=== PATIENT | female | born 1960 | race Caucasian/White ===

== ENCOUNTER → 2017-05-20 | Outpatient (CLI) | payer MEDICARE ==
[~2017-05-20] MED LIST: CITA40TA5 PO; CLON-364 PO; CYCL-259 PO; GABA100C PO; HYDR-3240 PO; HYDR-3307 PO; HYDR25CA PO; HYDR25TA11 PO; LEVO25TA4 PO; MIRT7.5T8 PO; NAPR500T4 PO; TRAZ150T62 PO
[2017-05-20 11:22] LABS: BASOPHILS # (AUTO) 0.04 x10^3/uL (0-0.1); BASOPHILS % (AUTO) 1 % (0-1); EOSINOPHILS # (AUTO) 0.07 x10^3/uL (0-0.4); EOSINOPHILS % (AUTO) 1 % (1-7); LYMPHOCYTES % (AUTO) 28 % (22-44); MD NO; MEAN CORPUSCULAR HGB CONC 33.7 g/dL (32.4-35.8); MEAN CORPUSCULAR VOLUME 98.1 fL (80-100); MEAN PLATELET VOLUME 6.9 fL (7.4-10.4); MONOCYTES # (AUTO) 0.64 x10^3/uL (0.2-0.8); MONOCYTES % (AUTO) 8 % (2-9); NEUTROPHILS # (AUTO) 5.31 x10^3/uL (1.8-6.8); NEUTROPHILS % (AUTO) 63 % (42-75); PLATELET COUNT 275 x10^3/uL (130-400); RED BLOOD COUNT 4.37 x10^6/uL (3.82-5.3); RED CELL DISTRIBUTION WIDTH 17.7 % (9.6-15.2)
[2017-05-20 11:29] LABS: INTERNATIONAL NORMALIZED RATIO 0.89 (0.93-1.1); PROTHROMBIN TIME 9.2 Seconds (9.6-11.5)
[2017-05-20 11:33] LABS: MICROSCOPIC NOT IND
[2017-05-20 11:33] LABS: ALBUMIN 3.7 g/dL (3.4-5.0); ANION GAP 4 mmol/L (5-15); CALCIUM 8.6 mg/dL (8.5-10.1); CHLORIDE 107 mmol/L (98-107)
[2017-05-20 11:37] LABS: ALANINE AMINOTRANSFERASE 74 U/L (12-78); ALKALINE PHOSPHATASE 68 U/L (45-117); BILIRUBIN,TOTAL 0.4 mg/dL (0.2-1.0); CREATININE 0.65 mg/dL (0.55-1.02)
[2017-05-20 11:38] LABS: CULTURE INDICATED? NO
== END | disposition home or self-care (01) ==
LOC: STAR 09:46
PROVIDERS: ATTEND Neurological Surgery
DX: Z01.818 Encounter for other preprocedural examination (principal); M51.36 Other intervertebral disc degeneration, lumbar region
CPT/HCPCS: 36415; 71046; 80053; 81003; 85025; 85610; 85730; 93005

== ENCOUNTER 2017-05-27 15:45 | Inpatient (IN) | payer MEDICARE ==
[~2017-05-27] VITALS: Ht 152.4 cm; Wt 50.6 kg
[~2017-05-27 15:45] MED LIST changes: +NAPR-685 PO; -NAPR500T4 PO
[2017-05-30 05:46] VITALS: BP 112/69
[2017-05-30] MEDS ORDERED: EPINEPHRINE 1 MG/ML, 1ML ONE (06:35)
[2017-05-30] MEDS ORDERED: BUPIVACAINE 0.25% ONE (06:35)
[2017-05-30] MEDS ORDERED: THROMBIN 20,000 UNIT VIAL TP ONE (06:35)
[2017-05-30] MEDS ORDERED: BUPIVACAINE/PF 0.5% ONE (06:35)
[2017-05-30] MEDS ORDERED: BACITRACIN 50,000 UNIT ONE (06:36)
[2017-05-30] MEDS ORDERED: HEPARIN 1,000 UNITS/ML, 30ML ONE (06:38)
[2017-05-30] MEDS ORDERED: NEOSTIGMINE 1 MG/ML, 10ML ONE (06:58)
[2017-05-30] MEDS ORDERED: GLYCOPYRROLATE 0.2MG/1ML, 5ML ONE (06:58)
[2017-05-30] MEDS ORDERED: HYDROmorphone 2 MG/ML, 1ML ONE (07:03)
[2017-05-30] MEDS ORDERED: MIDAZOLAM 1 MG/ML, 2ML ONE ×2 (07:03→11:35)
[2017-05-30] MEDS ORDERED: FENTANYL PF 250 MCG/5ML ONE (07:03)
[2017-05-30] MEDS ORDERED: KETAMINE 10 MG/ML, 20ML ONE (07:03)
[2017-05-30] MEDS ORDERED: BUPIVACAINE/PF-EPI 0.5% 1:200K INFIL ONE (07:41)
[2017-05-30] MEDS ORDERED: DEXAMETHASONE 4 MG/ML, 1ML ONE ×2 (07:53)
[2017-05-30] MEDS ORDERED: ROCURONIUM 10 MG/ML,10ML ONE ×2 (07:53)
[2017-05-30] MEDS ORDERED: CEFAZOLIN 1,000 MG ONE (07:53)
[2017-05-30] MEDS ORDERED: PROPOFOL 10 MG/ML, 20ML ONE (07:53)
[2017-05-30] MEDS ORDERED: EPHEDRINE 50 MG/ML, 1ML ONE (07:54)
[2017-05-30] MEDS ORDERED: LABETALOL 5MG/ML, 20ML IV PRN ×2 (08:00→14:30)
[2017-05-30] MEDS ORDERED: OXYcodone 5 MG/5 ML ORAL.SOL UDC PO PRN (08:00)
[2017-05-30] MEDS ORDERED: EPHEDRINE 50 MG/ML, 1ML IVPush PRN (08:00)
[2017-05-30] MEDS ORDERED: hydrALAzine 20 MG/ML, 1ML IV PRN (08:00)
[2017-05-30] MEDS ORDERED: HYDROmorphone 1 MG/ML, 1ML IV PRN (08:00)
[2017-05-30] MEDS ORDERED: ACETAMINOPHEN 325 MG TABLET PO PRN (08:00)
[2017-05-30] MEDS ORDERED: PROMETHAZINE 25 MG/ML, 1ML IV PRN (08:00)
[2017-05-30] MEDS ORDERED: METOPROLOL 1 MG/ML, 5ML IV PRN (08:00)
[2017-05-30] MEDS ORDERED: ALBUTEROL SULFATE 2.5 MG/3 ML NPPB PRN (08:00)
[2017-05-30] MEDS ORDERED: DIAZEPAM 5 MG/ML, 2ML IVPush PRN (08:00)
[2017-05-30] MEDS ORDERED: ONDANSETRON 2MG/ML, 2ML IVPush PRN (08:00)
[2017-05-30] MEDS ORDERED: FENTANYL PF 100 MCG/2ML ONE ×2 (11:36→12:08)
[2017-05-30] MEDS: FENTANYL PF 100 MCG/2ML IV PRN ×2 (11:45→12:15)
[2017-05-30] MEDS ORDERED: ACETAMINOPHEN 650 MG/20.3 ML UDC ONE (12:07)
[2017-05-30] MEDS ORDERED: OXYcodone 5 MG/5 ML ORAL.SOL UDC ONE (12:08)
[2017-05-30] MEDS ORDERED: MIDAZOLAM 1 MG/ML, 2ML IV PRN (12:30)
[2017-05-30] MEDS ORDERED: METHOCARBAMOL 750 MG TABLET ONE (13:05)
[2017-05-30 13:48] VITALS: BP 101/67
[2017-05-30] MEDS ORDERED: morphine SULFATE 10 MG/ML, 1ML IV PRN (14:30)
[2017-05-30] MEDS ORDERED: DIPHENHYDRAMINE 50 MG/ML, 1ML IM PRN (14:30)
[2017-05-30] MEDS ORDERED: DIPHENHYDRAMINE 50 MG CAPSULE PO PRN (14:30)
[2017-05-30] MEDS ORDERED: HYDROcodone/APAP 5/325 TABLET PO PRN (14:30)
[2017-05-30] MEDS ORDERED: MAGNESIUM HYDROXIDE 8%, 30ML UDC PO PRN (14:30)
[2017-05-30] MEDS ORDERED: DIPHENHYDRAMINE 50 MG/ML, 1ML IVPush PRN (14:30)
[2017-05-30] MEDS ORDERED: BISACODYL 10 MG SUPP PR PRN (14:30)
[2017-05-30] MEDS ORDERED: PROMETHAZINE 25 MG/ML, 1ML IM PRN (14:30)
[2017-05-30] MEDS ORDERED: METHOCARBAMOL 750 MG TABLET PO PRN (14:30)
[2017-05-30] MEDS ORDERED: ONDANSETRON 2MG/ML, 2ML IV PRN (14:30)
[2017-05-30] MEDS ORDERED: INSTRUCTION SEE COMMENTS XX PRN (15:00)
[2017-05-30] MEDS: D5%-0.9% NACL+KCL 20MEQ 1,000 ML IV SCH (15:41)
[2017-05-30] MEDS: GABAPENTIN 100 MG CAPSULE PO SCH ×2 (15:41→21:10)
[2017-05-30] MEDS: CYCLOBENZAPRINE 10 MG TABLET PO SCH ×2 (15:41→23:26)
[2017-05-30] MEDS: NICOTINE 14MG/24 HR PATCH.TD24 TD SCH (15:41)
[2017-05-30] MEDS: CEFAZOLIN PMX 1GM/50ML 50 ML IVPB SCH ×2 (15:41→23:26)
[2017-05-30 18:33] VITALS: BP 126/88
[2017-05-30] MEDS: OXYcodone/APAP 5/325MG TABLET PO PRN ×2 (21:11→21:40)
[2017-05-30] MEDS: DOXYCYCLINE 100MG CAP PO SCH (23:00)
[2017-05-30 23:32] VITALS: BP 117/78
[2017-05-31] MEDS: D5%-0.9% NACL+KCL 20MEQ 1,000 ML IV SCH ×3 (00:30→20:30)
[2017-05-31 03:37] VITALS: BP 110/68
[2017-05-31] MEDS: LEVOTHYROXINE 25 MCG TABLET PO SCH (05:14)
[2017-05-31] MEDS: OXYcodone/APAP 5/325MG TABLET PO PRN (05:14)
[2017-05-31 05:44] LABS: BASOPHILS # (AUTO) 0.03 x10^3/uL (0-0.1); BASOPHILS % (AUTO) 0 % (0-1); EOSINOPHILS # (AUTO) 0.01 x10^3/uL (0-0.4); EOSINOPHILS % (AUTO) 0 % (1-7); LYMPHOCYTES % (AUTO) 26 % (22-44); MD NO; MEAN CORPUSCULAR HEMOGLOBIN 33.2 pg (27.0-34.8); MEAN CORPUSCULAR HGB CONC 34.5 g/dL (32.4-35.8); MEAN CORPUSCULAR VOLUME 96.2 fL (80-100); MEAN PLATELET VOLUME 6.4 fL (7.4-10.4); MONOCYTES # (AUTO) 1.02 x10^3/uL (0.2-0.8); MONOCYTES % (AUTO) 12 % (2-9); NEUTROPHILS # (AUTO) 5.43 x10^3/uL (1.8-6.8); NEUTROPHILS % (AUTO) 62 % (42-75); PLATELET COUNT 291 x10^3/uL (130-400); RED CELL DISTRIBUTION WIDTH 16.4 % (9.6-15.2)
[2017-05-31 05:53] LABS: CHLORIDE 104 mmol/L (98-107)
[2017-05-31 05:59] LABS: ANION GAP 7 mmol/L (5-15); CALCIUM 7.9 mg/dL (8.5-10.1); CREATININE 0.49 mg/dL (0.55-1.02)
[2017-05-31] MEDS: ENOXAPARIN 40 MG/0.4 ML SQ SCH (06:16)
[2017-05-31 07:20] VITALS: BP 92/58
[2017-05-31] MEDS: SENNA/DOCUSATE TABLET PO SCH (09:00)
[2017-05-31] MEDS ORDERED: KETOROLAC 30 MG/1 ML IM ONE (09:00)
[2017-05-31] MEDS: DOXYCYCLINE 100MG CAP PO SCH ×2 (09:00→21:37)
[2017-05-31] MEDS: CITALOPRAM 20 MG TABLET PO SCH (09:11)
[2017-05-31] MEDS: GABAPENTIN 100 MG CAPSULE PO SCH ×3 (09:11→21:35)
[2017-05-31] MEDS: CYCLOBENZAPRINE 10 MG TABLET PO SCH ×3 (09:11→21:35)
[2017-05-31] MEDS: OXYcodone/APAP 10/325MG TABLET PO PRN ×3 (09:12→21:35)
[2017-05-31 13:11] VITALS: BP 92/63
[2017-05-31] MEDS: NICOTINE 14MG/24 HR PATCH.TD24 TD SCH (16:18)
[2017-05-31 22:25] VITALS: BP 116/77
[2017-05-31] MEDS ORDERED: CALCIUM CARBONATE 500 MG TAB.CHEW PO PRN (22:30)
[2017-05-31] MEDS ORDERED: CALCIUM CARBONATE 500 MG TAB.CHEW ONE (22:32)
[2017-06-01] MEDS: OXYcodone/APAP 10/325MG TABLET PO PRN ×3 (02:17→10:03)
[2017-06-01 05:06] VITALS: BP 106/75
[2017-06-01 05:21] LABS: BASOPHILS # (AUTO) 0.06 x10^3/uL (0-0.1); BASOPHILS % (AUTO) 1 % (0-1); EOSINOPHILS # (AUTO) 0.07 x10^3/uL (0-0.4); EOSINOPHILS % (AUTO) 1 % (1-7); LYMPHOCYTES # (AUTO) 2.97 x10^3/uL (1-3.4); LYMPHOCYTES % (AUTO) 36 % (22-44); MD NO; MEAN CORPUSCULAR HEMOGLOBIN 33.2 pg (27.0-34.8); MEAN CORPUSCULAR HGB CONC 34.5 g/dL (32.4-35.8); MEAN CORPUSCULAR VOLUME 96.3 fL (80-100); MEAN PLATELET VOLUME 6.5 fL (7.4-10.4); MONOCYTES # (AUTO) 0.87 x10^3/uL (0.2-0.8); MONOCYTES % (AUTO) 11 % (2-9); NEUTROPHILS # (AUTO) 4.37 x10^3/uL (1.8-6.8); NEUTROPHILS % (AUTO) 52 % (42-75); PLATELET COUNT 287 x10^3/uL (130-400); RED BLOOD COUNT 3.31 x10^6/uL (3.82-5.3); RED CELL DISTRIBUTION WIDTH 16.7 % (9.6-15.2)
[2017-06-01 05:31] LABS: CHLORIDE 102 mmol/L (98-107)
[2017-06-01 05:36] LABS: ANION GAP 7 mmol/L (5-15)
[2017-06-01] MEDS: D5%-0.9% NACL+KCL 20MEQ 1,000 ML IV SCH (05:54)
[2017-06-01] MEDS: LEVOTHYROXINE 25 MCG TABLET PO SCH (06:03)
[2017-06-01] MEDS: ENOXAPARIN 40 MG/0.4 ML SQ SCH (06:04)
[2017-06-01 07:49] VITALS: BP 116/80
[2017-06-01] MEDS: DOXYCYCLINE 100MG CAP PO SCH (08:56)
[2017-06-01] MEDS: CYCLOBENZAPRINE 10 MG TABLET PO SCH (08:56)
[2017-06-01] MEDS: CITALOPRAM 20 MG TABLET PO SCH (08:56)
[2017-06-01] MEDS: SENNA/DOCUSATE TABLET PO SCH (08:56)
[2017-06-01] MEDS: GABAPENTIN 100 MG CAPSULE PO SCH (08:56)
[2017-06-01] MEDS ORDERED: DOXY100T PO (10:59)
[2017-06-01] MEDS ORDERED: SENN-31 PO (11:00)
[2017-06-01] MEDS ORDERED: OXYC-307 PO (11:01)
[2017-06-01 11:16] VITALS: BP 119/73
[2017-06-09] MEDS ORDERED: METH4TAB6 PO (14:04)
== END 2017-06-01 11:56 | disposition home or self-care (01) | DRG 453 ==
LOC: 4NOR 05-30 05:20 → DCLOUNGE 06-01 11:32
PROVIDERS: ADMIT Neurological Surgery; ATTEND Neurological Surgery
PROC: 0SG30A0 Fusion of Lumbosacral Joint with Interbody Fusion Device, Anterior Approach, Anterior Column, Open Approach (ICD-10-PCS; 2017-05-30)
PROC: 4A11X4G Monitoring of Peripheral Nervous Electrical Activity, Intraoperative, External Approach (ICD-10-PCS; 2017-05-30)
PROC: 0SG3071 Fusion of Lumbosacral Joint with Autologous Tissue Substitute, Posterior Approach, Posterior Column, Open Approach (ICD-10-PCS; 2017-05-30)
PROC: 0SP00AZ Removal of Interbody Fusion Device from Lumbar Vertebral Joint, Open Approach (ICD-10-PCS; 2017-05-30)
PROC: 4A11X4G Monitoring of Peripheral Nervous Electrical Activity, Intraoperative, External Approach (ICD-10-PCS; 2017-05-30)
PROC: 0SG0071 Fusion of Lumbar Vertebral Joint with Autologous Tissue Substitute, Posterior Approach, Posterior Column, Open Approach (ICD-10-PCS; 2017-05-30)
PROC: 0SB40ZZ Excision of Lumbosacral Disc, Open Approach (ICD-10-PCS; principal; 2017-05-30 07:00)
DX: M48.061 Spinal stenosis, lumbar region without neurogenic claudication (principal); J96.01 Acute respiratory failure with hypoxia; M48.57XA Collapsed vertebra, not elsewhere classified, lumbosacral region, initial encounter for fracture; F17.200 Nicotine dependence, unspecified, uncomplicated; F32.9 Major depressive disorder, single episode, unspecified; G89.29 Other chronic pain; M43.17 Spondylolisthesis, lumbosacral region; M51.17 Intervertebral disc disorders with radiculopathy, lumbosacral region; M43.16 Spondylolisthesis, lumbar region; M51.16 Intervertebral disc disorders with radiculopathy, lumbar region; Z88.8 Allergy status to other drugs, medicaments and biological substances; Z88.0 Allergy status to penicillin; Z86.19 Personal history of other infectious and parasitic diseases
CPT/HCPCS: 36415; 72100; 74018; 80048; 82330; 82803; 82947; 84132; 84295; 85014; 85025; C1713; J0171; J0690; J1100; J1170; J1644; J1650; J1885; J2250; J2270; J2550; J2704; J2710; J3010; J3360; J3490; C1762; J3480

== ENCOUNTER 2017-06-15 07:40 | Inpatient (IN) | payer MEDICARE ==
[~2017-06-15] VITALS: Ht 152.4 cm; Wt 50.0 kg
[~2017-06-15 07:40] MED LIST changes: +DOXY100T PO; +METH4TAB6 PO; +OXYC-307 PO; +SENN-31 PO
[2017-06-15] MEDS ORDERED: HYDR-3307 PO (07:55)
[2017-06-15] MEDS ORDERED: SODIUM CHLORIDE FLUSH 10ML SYR IVF ONE ×2 (08:30→10:00)
[2017-06-15] MEDS ORDERED: ONDANSETRON 2MG/ML, 2ML IVPush ONE (08:30)
[2017-06-15] MEDS ORDERED: SODIUM CHLORIDE 0.9% 1,000ML IV ONE (08:30)
[2017-06-15] MEDS ORDERED: ONDANSETRON 2MG/ML, 2ML ONE (08:44)
[2017-06-15] MEDS ORDERED: MORPHINE SULFATE 4 MG/ML, 1ML ONE ×2 (08:44→10:21)
[2017-06-15] MEDS: MORPHINE SULFATE 4 MG/ML, 1ML IVPush PRN ×2 (09:08→10:27)
[2017-06-15 09:22] LABS: MEAN CORPUSCULAR HEMOGLOBIN 32.8 pg (27.0-34.8); MEAN CORPUSCULAR HGB CONC 33.8 g/dL (32.4-35.8); MEAN CORPUSCULAR VOLUME 96.9 fL (80-100); PLATELET COUNT 697 x10^3/uL (130-400); RED BLOOD COUNT 3.55 x10^6/uL (3.82-5.3)
[2017-06-15 09:24] LABS: ALBUMIN 2.7 g/dL (3.4-5.0); ANION GAP 11 mmol/L (5-15); CALCIUM 8.6 mg/dL (8.5-10.1); CHLORIDE 93 mmol/L (98-107); CREATININE 0.54 mg/dL (0.55-1.02)
[2017-06-15 09:26] LABS: CREATINE KINASE, TOTAL 214 U/L (26-192)
[2017-06-15] MEDS ORDERED: CEFTRIAXONE PMX 1GM/50ML 50 ML IVPB ONE (10:00)
[2017-06-15] MEDS ORDERED: CEFTRIAXONE PMX 1GM/50ML 50 ML ONE (10:02)
[2017-06-15 10:05] LABS: BASOPHILS % (AUTO) 0 % (0-1); EOSINOPHILS % (AUTO) 0 % (1-7); LYMPHOCYTES # (AUTO) 0.58 x10^3/uL (1-3.4); LYMPHOCYTES % (AUTO) 4 % (22-44); MD SCAN; MONOCYTES # (AUTO) 1.12 x10^3/uL (0.2-0.8); MONOCYTES % (AUTO) 8 % (2-9); NEUTROPHILS # (AUTO) 11.73 x10^3/uL (1.8-6.8); NEUTROPHILS % (AUTO) 87 % (42-75)
[2017-06-15] MEDS ORDERED: MORPHINE SULFATE 4 MG/ML, 1ML IVPush PRN (11:00)
[2017-06-15] MEDS ORDERED: hydrALAzine 20 MG/ML, 1ML IVPush PRN (11:00)
[2017-06-15] MEDS ORDERED: ACETAMINOPHEN 325 MG TABLET PO PRN (11:00)
[2017-06-15] MEDS ORDERED: ONDANSETRON 2MG/ML, 2ML IVPush PRN (11:00)
[2017-06-15 11:45] LABS: FREE T4 (FREE THYROXINE) 1.29 ng/dL (0.76-1.46); THYROID STIMULATING HORMONE 0.376 mIU/L (0.358-3.740)
[2017-06-15 11:46] LABS: C-REACTIVE PROTEIN, QUANT > 19.00 mg/dL (0.02-0.49)
[2017-06-15] MEDS ORDERED: GADOBUTROL 7.5 MMOL/7.5 ML VIAL ONE (11:57)
[2017-06-15 12:27] VITALS: BP 119/82
[2017-06-15 12:29] LABS: HCT (SEDRATE) 34.4 % (34.6-47.8)
[2017-06-15] MEDS: CITALOPRAM 20 MG TABLET PO SCH (13:22)
[2017-06-15] MEDS: NICOTINE 21 MG/24 HR PATCH.TD24 TD SCH (13:22)
[2017-06-15] MEDS: GABAPENTIN 100 MG CAPSULE PO SCH ×3 (13:22→21:59)
[2017-06-15] MEDS: POTASSIUM CHLORIDE 20 MEQ TAB.ER.PRT PO SCH ×2 (13:22→13:30)
[2017-06-15] MEDS: HYDROcodone/APAP 5/325 TABLET PO PRN ×3 (13:22→21:59)
[2017-06-15] MEDS: LEVOTHYROXINE 25 MCG TABLET PO SCH (13:34)
[2017-06-15] MEDS: SODIUM CHLORIDE 0.9% 1,000 ML IV SCH (13:34)
[2017-06-15 19:10] VITALS: BP 106/74
[2017-06-15 19:32] LABS: AMPHETAMINE SCREEN, URINE Negative (Negative); BARBITURATE SCREEN, URINE Negative (Negative); BENZODIAZEPINE SCREEN, URINE Negative (Negative); CANNABINOID SCREEN, URINE Positive (Negative); COCAINE SCREEN, URINE Negative (Negative); METHADONE SCREEN, URINE Negative (Negative); OPIATE SCREEN, URINE Positive (Negative)
[2017-06-16 00:40] VITALS: BP 137/89
[2017-06-16] MEDS: SODIUM CHLORIDE 0.9% 1,000 ML IV SCH ×3 (00:49→23:24)
[2017-06-16 05:11] LABS: BASOPHILS % (AUTO) 0 % (0-1); EOSINOPHILS % (AUTO) 0 % (1-7); LYMPHOCYTES # (AUTO) 0.77 x10^3/uL (1-3.4); LYMPHOCYTES % (AUTO) 7 % (22-44); MD NO; MEAN CORPUSCULAR HEMOGLOBIN 33.3 pg (27.0-34.8); MEAN CORPUSCULAR HGB CONC 33.7 g/dL (32.4-35.8); MEAN CORPUSCULAR VOLUME 98.6 fL (80-100); MEAN PLATELET VOLUME 6.4 fL (7.4-10.4); MONOCYTES % (AUTO) 10 % (2-9); NEUTROPHILS % (AUTO) 83 % (42-75); PLATELET COUNT 581 x10^3/uL (130-400); RED BLOOD COUNT 3.27 x10^6/uL (3.82-5.3)
[2017-06-16] MEDS: HYDROcodone/APAP 5/325 TABLET PO PRN ×5 (05:15→23:24)
[2017-06-16 05:19] LABS: ALBUMIN 2.1 g/dL (3.4-5.0); ANION GAP 9 mmol/L (5-15); CALCIUM 8.4 mg/dL (8.5-10.1); CHLORIDE 102 mmol/L (98-107)
[2017-06-16 05:22] LABS: ALANINE AMINOTRANSFERASE 41 U/L (12-78); ALKALINE PHOSPHATASE 99 U/L (45-117); BILIRUBIN,TOTAL 0.6 mg/dL (0.2-1.0); CREATININE 0.41 mg/dL (0.55-1.02); TOTAL PROTEIN 6.3 g/dL (6.4-8.2)
[2017-06-16] MEDS: GABAPENTIN 100 MG CAPSULE PO SCH ×4 (06:11→23:24)
[2017-06-16 07:03] VITALS: BP 97/60
[2017-06-16] MEDS ORDERED: ENOXAPARIN 30 MG/0.3 ML SQ SCH (09:00)
[2017-06-16] MEDS ORDERED: POTASSIUM PHOSPHATE 44 MEQ in SODIUM CHLORIDE 0.9% 500 ML IV ONE (09:30)
[2017-06-16] MEDS ORDERED: CEFTRIAXONE 1,000 MG in DEXTROSE 5% 50 ML IVPB SCH (10:00)
[2017-06-16] MEDS ORDERED: VANCOMYCIN PMX 1GM/200ML 200 ML IV ONE (10:00)
[2017-06-16] MEDS ORDERED: VANCOMYCIN PER PHARMACY MC PRN (10:00)
[2017-06-16] MEDS: CITALOPRAM 20 MG TABLET PO SCH (10:34)
[2017-06-16] MEDS: LEVOTHYROXINE 25 MCG TABLET PO SCH (10:34)
[2017-06-16] MEDS: POTASSIUM CHLORIDE 20 MEQ TAB.ER.PRT PO SCH ×2 (10:35→13:41)
[2017-06-16] MEDS: PIPERACILLIN/TAZO/PMX 3.375GM 50 ML IV SCH ×3 (10:56→23:25)
[2017-06-16] MEDS: VANCOMYCIN 800 MG in SODIUM CHLORIDE 0.9% 100 ML IV SCH (11:46)
[2017-06-16] MEDS: NICOTINE 21 MG/24 HR PATCH.TD24 TD SCH (11:46)
[2017-06-16] MEDS ORDERED: PHARMACOKINETIC MONITORING MC PRN (12:00)
[2017-06-16 13:25] VITALS: BP 99/65
[2017-06-16 19:37] VITALS: BP 91/65
[2017-06-17] MEDS: VANCOMYCIN 800 MG in SODIUM CHLORIDE 0.9% 100 ML IV SCH (00:39)
[2017-06-17 02:05] VITALS: BP 116/85
[2017-06-17] MEDS: HYDROcodone/APAP 5/325 TABLET PO PRN ×4 (04:34→20:09)
[2017-06-17] MEDS: SODIUM CHLORIDE 0.9% 1,000 ML IV SCH ×2 (05:30→15:30)
[2017-06-17] MEDS: GABAPENTIN 100 MG CAPSULE PO SCH ×4 (05:50→20:09)
[2017-06-17] MEDS: PIPERACILLIN/TAZO/PMX 3.375GM 50 ML IV SCH ×3 (05:50→18:07)
[2017-06-17 05:52] LABS: MEAN CORPUSCULAR HEMOGLOBIN 32.5 pg (27.0-34.8); MEAN CORPUSCULAR HGB CONC 33.2 g/dL (32.4-35.8); MEAN PLATELET VOLUME 6.9 fL (7.4-10.4); PLATELET COUNT 510 x10^3/uL (130-400); RED CELL DISTRIBUTION WIDTH 18.2 % (9.6-15.2)
[2017-06-17 05:55] LABS: ANION GAP 6 mmol/L (5-15); CALCIUM 8.2 mg/dL (8.5-10.1); CHLORIDE 107 mmol/L (98-107)
[2017-06-17 05:58] LABS: ALANINE AMINOTRANSFERASE 81 U/L (12-78); ALKALINE PHOSPHATASE 118 U/L (45-117); BILIRUBIN,TOTAL 0.4 mg/dL (0.2-1.0); CREATININE 0.48 mg/dL (0.55-1.02); TOTAL PROTEIN 6.3 g/dL (6.4-8.2)
[2017-06-17 07:12] LABS: BASOPHILS # (AUTO) 0.01 x10^3/uL (0-0.1); BASOPHILS % (AUTO) 0 % (0-1); EOSINOPHILS # (AUTO) 0.04 x10^3/uL (0-0.4); EOSINOPHILS % (AUTO) 0 % (1-7); LYMPHOCYTES # (AUTO) 1.09 x10^3/uL (1-3.4); LYMPHOCYTES % (AUTO) 9 % (22-44); MD SCAN; MONOCYTES # (AUTO) 1.16 x10^3/uL (0.2-0.8); MONOCYTES % (AUTO) 10 % (2-9); NEUTROPHILS # (AUTO) 9.89 x10^3/uL (1.8-6.8); NEUTROPHILS % (AUTO) 81 % (42-75)
[2017-06-17 07:35] VITALS: BP 137/93
[2017-06-17] MEDS: CITALOPRAM 20 MG TABLET PO SCH (09:08)
[2017-06-17] MEDS: LEVOTHYROXINE 25 MCG TABLET PO SCH (09:09)
[2017-06-17] MEDS: DAPTOMYCIN 300 MG in SODIUM CHLORIDE 0.9% 100 ML IV SCH (10:42)
[2017-06-17] MEDS: ENOXAPARIN 40 MG/0.4 ML SQ SCH (10:43)
[2017-06-17] MEDS: NICOTINE 21 MG/24 HR PATCH.TD24 TD SCH (10:43)
[2017-06-17] MEDS: METHOCARBAMOL 500 MG TABLET PO SCH ×2 (10:44→16:52)
[2017-06-17] MEDS: FENTANYL 50 MCG PATCH TD SCH ×2 (12:54→12:56)
[2017-06-17 14:49] VITALS: BP 111/85
[2017-06-17] MEDS ORDERED: POLYETHYLENE GLYCOL 17 GM PACKET ONE (18:02)
[2017-06-17] MEDS ORDERED: BISACODYL 10 MG SUPP PR ONE (18:30)
[2017-06-17] MEDS ORDERED: BISACODYL 10 MG SUPP PR PRN (18:30)
[2017-06-17] MEDS ORDERED: POLYETHYLENE GLYCOL 17 GM PACKET PO PRN (18:30)
[2017-06-17 18:47] VITALS: BP 109/64
[2017-06-18] MEDS: PIPERACILLIN/TAZO/PMX 3.375GM 50 ML IV SCH ×4 (00:12→18:27)
[2017-06-18] MEDS: METHOCARBAMOL 500 MG TABLET PO SCH ×5 (00:13→20:30)
[2017-06-18] MEDS: SODIUM CHLORIDE 0.9% 1,000 ML IV SCH ×2 (00:15→23:11)
[2017-06-18 00:55] VITALS: BP 124/82
[2017-06-18] MEDS: LEVOTHYROXINE 25 MCG TABLET PO SCH (05:17)
[2017-06-18] MEDS: HYDROcodone/APAP 5/325 TABLET PO PRN ×4 (05:17→20:30)
[2017-06-18 05:35] LABS: CHLORIDE 105 mmol/L (98-107)
[2017-06-18 05:38] LABS: BASOPHILS # (AUTO) 0.02 x10^3/uL (0-0.1); BASOPHILS % (AUTO) 0 % (0-1); EOSINOPHILS # (AUTO) 0.08 x10^3/uL (0-0.4); EOSINOPHILS % (AUTO) 1 % (1-7); LYMPHOCYTES # (AUTO) 2.12 x10^3/uL (1-3.4); LYMPHOCYTES % (AUTO) 14 % (22-44); MD NO; MEAN CORPUSCULAR HEMOGLOBIN 32.3 pg (27.0-34.8); MEAN CORPUSCULAR HGB CONC 33.4 g/dL (32.4-35.8); MEAN CORPUSCULAR VOLUME 96.7 fL (80-100); MEAN PLATELET VOLUME 6.5 fL (7.4-10.4); MONOCYTES # (AUTO) 1.24 x10^3/uL (0.2-0.8); MONOCYTES % (AUTO) 8 % (2-9); NEUTROPHILS % (AUTO) 78 % (42-75); PLATELET COUNT 553 x10^3/uL (130-400); RED BLOOD COUNT 3.45 x10^6/uL (3.82-5.3); RED CELL DISTRIBUTION WIDTH 18.3 % (9.6-15.2)
[2017-06-18 05:40] LABS: ALANINE AMINOTRANSFERASE 99 U/L (12-78); ALBUMIN 1.9 g/dL (3.4-5.0); ALKALINE PHOSPHATASE 267 U/L (45-117); ANION GAP 8 mmol/L (5-15); BILIRUBIN,TOTAL 0.6 mg/dL (0.2-1.0); CALCIUM 8.6 mg/dL (8.5-10.1); CREATININE 0.42 mg/dL (0.55-1.02); TOTAL PROTEIN 6.4 g/dL (6.4-8.2)
[2017-06-18 07:27] VITALS: BP 131/84
[2017-06-18] MEDS: GABAPENTIN 300 MG CAPSULE PO SCH ×3 (09:02→20:30)
[2017-06-18] MEDS: ENOXAPARIN 40 MG/0.4 ML SQ SCH (09:02)
[2017-06-18] MEDS: CITALOPRAM 20 MG TABLET PO SCH (09:02)
[2017-06-18] MEDS: MICAFUNGIN 100 MG in SODIUM CHLORIDE 0.9% 100 ML IV SCH (10:11)
[2017-06-18] MEDS: NICOTINE 21 MG/24 HR PATCH.TD24 TD SCH (11:41)
[2017-06-18] MEDS: DAPTOMYCIN 300 MG in SODIUM CHLORIDE 0.9% 100 ML IV SCH (12:14)
[2017-06-18 13:25] VITALS: BP 101/71
[2017-06-18 18:50] VITALS: BP 103/80
[2017-06-19 00:50] VITALS: BP 110/73
[2017-06-19] MEDS: PIPERACILLIN/TAZO/PMX 3.375GM 50 ML IV SCH ×4 (01:23→19:45)
[2017-06-19] MEDS: METHOCARBAMOL 500 MG TABLET PO SCH ×4 (05:45→21:00)
[2017-06-19] MEDS: HYDROcodone/APAP 5/325 TABLET PO PRN ×5 (05:45→23:00)
[2017-06-19 05:52] LABS: ALBUMIN 1.7 g/dL (3.4-5.0); ANION GAP 8 mmol/L (5-15); CALCIUM 8.4 mg/dL (8.5-10.1); CHLORIDE 107 mmol/L (98-107)
[2017-06-19 05:54] LABS: MEAN CORPUSCULAR HEMOGLOBIN 32.6 pg (27.0-34.8); MEAN CORPUSCULAR HGB CONC 33.3 g/dL (32.4-35.8); MEAN CORPUSCULAR VOLUME 97.9 fL (80-100); MEAN PLATELET VOLUME 6.8 fL (7.4-10.4); PLATELET COUNT 599 x10^3/uL (130-400); RED BLOOD COUNT 3.47 x10^6/uL (3.82-5.3); RED CELL DISTRIBUTION WIDTH 18.3 % (9.6-15.2)
[2017-06-19 05:59] LABS: ALANINE AMINOTRANSFERASE 60 U/L (12-78); ALKALINE PHOSPHATASE 210 U/L (45-117); BILIRUBIN,TOTAL 0.4 mg/dL (0.2-1.0); CREATININE 0.36 mg/dL (0.55-1.02)
[2017-06-19 06:48] LABS: MD YES
[2017-06-19 06:49] LABS: METAMYELOCYTES# (MANUAL) 0.13 x10^3/uL (0-0); METAMYELOCYTES% (MANUAL) 1 % (0-1); MONOS#(MANUAL) 0.79 x10^3/uL (0.3-2.7); MONOS% (MANUAL) 6 % (2-9); REACTIVE LYMPHS # (MANUAL) 0.13 x10^3/uL (0-0); REACTIVE LYMPHS % (MANUAL) 1 % (0-0)
[2017-06-19 06:50] LABS: BAND#(MANUAL) 0.26 x10^3/uL; BANDS%(MANUAL) 2 % (0-7); LYMPH#(MANUAL) 2.77 x10^3/uL (1-3.4); LYMPHS% (MANUAL) 21 % (22-44); SEG#(MANUAL) 9.11 x10^3/uL (1.8-6.8); SEGS% (MANUAL) 69 % (42-75); TOXIC GRAN 1+
[2017-06-19 06:51] LABS: <PLATELET ESTIMATE> INCREASED; <PLT MORPHOLOGY> NORMAL PLT MORPH; ANISOCYTOSIS 1+; POLYCHROMASIA 1+
[2017-06-19 07:48] VITALS: BP 121/89
[2017-06-19] MEDS: SODIUM CHLORIDE 0.9% 1,000 ML IV SCH ×2 (07:56→19:46)
[2017-06-19] MEDS: CITALOPRAM 20 MG TABLET PO SCH (09:05)
[2017-06-19] MEDS: GABAPENTIN 300 MG CAPSULE PO SCH ×3 (09:05→19:45)
[2017-06-19] MEDS: LEVOTHYROXINE 25 MCG TABLET PO SCH (09:05)
[2017-06-19] MEDS: MICAFUNGIN 100 MG in SODIUM CHLORIDE 0.9% 100 ML IV SCH (09:05)
[2017-06-19] MEDS: ENOXAPARIN 40 MG/0.4 ML SQ SCH (10:19)
[2017-06-19] MEDS: NICOTINE 21 MG/24 HR PATCH.TD24 TD SCH (10:20)
[2017-06-19] MEDS: DAPTOMYCIN 300 MG in SODIUM CHLORIDE 0.9% 100 ML IV SCH (11:25)
[2017-06-19 14:53] VITALS: BP 113/77
[2017-06-19 21:39] VITALS: BP 150/92
[2017-06-20 01:26] VITALS: BP 122/74
[2017-06-20] MEDS: PIPERACILLIN/TAZO/PMX 3.375GM 50 ML IV SCH ×4 (01:58→22:35)
[2017-06-20] MEDS: HYDROcodone/APAP 5/325 TABLET PO PRN ×5 (03:14→20:03)
[2017-06-20 05:17] LABS: BASOPHILS # (AUTO) 0.06 x10^3/uL (0-0.1); BASOPHILS % (AUTO) 1 % (0-1); EOSINOPHILS # (AUTO) 0.17 x10^3/uL (0-0.4); EOSINOPHILS % (AUTO) 2 % (1-7); LYMPHOCYTES # (AUTO) 2.12 x10^3/uL (1-3.4); LYMPHOCYTES % (AUTO) 18 % (22-44); MD NO; MEAN CORPUSCULAR HEMOGLOBIN 33.2 pg (27.0-34.8); MEAN CORPUSCULAR VOLUME 97.7 fL (80-100); MEAN PLATELET VOLUME 6.4 fL (7.4-10.4); MONOCYTES # (AUTO) 1.15 x10^3/uL (0.2-0.8); MONOCYTES % (AUTO) 10 % (2-9); NEUTROPHILS # (AUTO) 8.44 x10^3/uL (1.8-6.8); NEUTROPHILS % (AUTO) 71 % (42-75); PLATELET COUNT 598 x10^3/uL (130-400); RED BLOOD COUNT 3.08 x10^6/uL (3.82-5.3); RED CELL DISTRIBUTION WIDTH 18.1 % (9.6-15.2)
[2017-06-20 05:26] LABS: ALBUMIN 1.7 g/dL (3.4-5.0); CALCIUM 8.4 mg/dL (8.5-10.1); CHLORIDE 108 mmol/L (98-107)
[2017-06-20 05:32] LABS: ALANINE AMINOTRANSFERASE 105 U/L (12-78); ALKALINE PHOSPHATASE 619 U/L (45-117); ANION GAP 6 mmol/L (5-15); BILIRUBIN,TOTAL 0.6 mg/dL (0.2-1.0); CREATININE 0.39 mg/dL (0.55-1.02); TOTAL PROTEIN 5.9 g/dL (6.4-8.2)
[2017-06-20] MEDS: METHOCARBAMOL 500 MG TABLET PO SCH ×3 (05:55→16:00)
[2017-06-20] MEDS: SODIUM CHLORIDE 0.9% 1,000 ML IV SCH (06:11)
[2017-06-20 07:05] VITALS: BP 136/95
[2017-06-20] MEDS: LEVOTHYROXINE 25 MCG TABLET PO SCH (08:13)
[2017-06-20] MEDS: GABAPENTIN 300 MG CAPSULE PO SCH ×3 (08:13→20:03)
[2017-06-20] MEDS: CITALOPRAM 20 MG TABLET PO SCH (08:13)
[2017-06-20] MEDS: MICAFUNGIN 100 MG in SODIUM CHLORIDE 0.9% 100 ML IV SCH (09:53)
[2017-06-20] MEDS: NICOTINE 21 MG/24 HR PATCH.TD24 TD SCH (09:54)
[2017-06-20] MEDS: FENTANYL 50 MCG PATCH TD SCH (09:54)
[2017-06-20] MEDS: ENOXAPARIN 40 MG/0.4 ML SQ SCH (09:55)
[2017-06-20] MEDS: DAPTOMYCIN 300 MG in SODIUM CHLORIDE 0.9% 100 ML IV SCH (11:55)
[2017-06-20 12:53] VITALS: BP 156/97
[2017-06-20] MEDS ORDERED: METHOCARBAMOL 500 MG TABLET PO PRN (18:00)
[2017-06-20 19:32] VITALS: BP 183/108
[2017-06-21 00:33] VITALS: BP 134/97
[2017-06-21] MEDS: HYDROcodone/APAP 5/325 TABLET PO PRN ×4 (00:48→14:09)
[2017-06-21 04:53] LABS: HCT (SEDRATE) 27.9 % (34.6-47.8)
[2017-06-21 04:54] LABS: ALBUMIN 1.8 g/dL (3.4-5.0); ANION GAP 6 mmol/L (5-15); CALCIUM 8.9 mg/dL (8.5-10.1); CHLORIDE 107 mmol/L (98-107); MEAN CORPUSCULAR HEMOGLOBIN 32.3 pg (27.0-34.8); MEAN CORPUSCULAR HGB CONC 33.4 g/dL (32.4-35.8); MEAN CORPUSCULAR VOLUME 96.7 fL (80-100); MEAN PLATELET VOLUME 6.4 fL (7.4-10.4); PLATELET COUNT 652 x10^3/uL (130-400); RED BLOOD COUNT 2.89 x10^6/uL (3.82-5.3); RED CELL DISTRIBUTION WIDTH 18.5 % (9.6-15.2)
[2017-06-21 05:04] LABS: ALANINE AMINOTRANSFERASE 138 U/L (12-78); ALKALINE PHOSPHATASE 728 U/L (45-117); BILIRUBIN,TOTAL 0.8 mg/dL (0.2-1.0); CREATINE KINASE, TOTAL 30 U/L (26-192); CREATININE 0.36 mg/dL (0.55-1.02); TOTAL PROTEIN 6.2 g/dL (6.4-8.2)
[2017-06-21] MEDS: PIPERACILLIN/TAZO/PMX 3.375GM 50 ML IV SCH ×2 (05:12→11:34)
[2017-06-21 05:50] LABS: MD YES
[2017-06-21 05:51] LABS: BAND#(MANUAL) 0.15 x10^3/uL; BANDS%(MANUAL) 1 % (0-7); LYMPH#(MANUAL) 2.83 x10^3/uL (1-3.4); LYMPHS% (MANUAL) 19 % (22-44); MONOS#(MANUAL) 1.19 x10^3/uL (0.3-2.7); MONOS% (MANUAL) 8 % (2-9); SEG#(MANUAL) 10.73 x10^3/uL (1.8-6.8); SEGS% (MANUAL) 72 % (42-75)
[2017-06-21 05:52] LABS: ANISOCYTOSIS 1+; POLYCHROMASIA 1+
[2017-06-21 05:53] LABS: <PLATELET ESTIMATE> INCREASED; <PLT MORPHOLOGY> NORMAL PLT MORPH
[2017-06-21 08:25] VITALS: BP 139/90
[2017-06-21] MEDS ORDERED: GABAPENTIN 300 MG CAPSULE PO SCH (09:00)
[2017-06-21] MEDS: MICAFUNGIN 100 MG in SODIUM CHLORIDE 0.9% 100 ML IV SCH (09:44)
[2017-06-21] MEDS: ENOXAPARIN 40 MG/0.4 ML SQ SCH (09:45)
[2017-06-21] MEDS: LEVOTHYROXINE 25 MCG TABLET PO SCH (09:45)
[2017-06-21] MEDS: CITALOPRAM 20 MG TABLET PO SCH (09:46)
[2017-06-21] MEDS ORDERED: MICAFUNGIN IV (10:08)
[2017-06-21] MEDS ORDERED: DAPT500V6 IV (10:08)
[2017-06-21] MEDS ORDERED: CITA20TA9 PO (10:08)
[2017-06-21] MEDS ORDERED: HYDR-3240 PO (10:09)
[2017-06-21] MEDS ORDERED: ENOX40SY4 SQ (10:09)
[2017-06-21] MEDS ORDERED: ONDA4VIA4 IVPush (10:09)
[2017-06-21] MEDS ORDERED: FENT1PAT76 TD (10:09)
[2017-06-21] MEDS ORDERED: METH500T7 PO (10:09)
[2017-06-21] MEDS ORDERED: POLY17PO5 PO (10:09)
[2017-06-21] MEDS ORDERED: NICO-487 TD (10:09)
[2017-06-21] MEDS ORDERED: LEVO25TA2 PO (10:09)
[2017-06-21] MEDS ORDERED: TRAM50TA2 PO (10:09)
[2017-06-21] MEDS ORDERED: GABA300C10 PO (10:09)
[2017-06-21] MEDS: GABAPENTIN 400 MG CAPSULE PO SCH ×2 (10:11→15:49)
[2017-06-21] MEDS: NICOTINE 21 MG/24 HR PATCH.TD24 TD SCH (11:34)
[2017-06-21] MEDS: DAPTOMYCIN 300 MG in SODIUM CHLORIDE 0.9% 100 ML IV SCH (12:42)
[2017-06-21 12:50] VITALS: BP 147/74
[2017-06-22] MEDS ORDERED: GABAPENTIN 300 MG CAPSULE PO SCH (09:00)
== END 2017-06-21 16:28 | DRG 862 ==
LOC: ED 08:38 → EDIP 09:45 → 4NOR 12:09
PROVIDERS: ADMIT Hospitalist; ATTEND Hospitalist
PROC: 02HV33Z Insertion of Infusion Device into Superior Vena Cava, Percutaneous Approach (ICD-10-PCS; principal; 2017-06-20)
PROC: B548ZZA Ultrasonography of Superior Vena Cava, Guidance (ICD-10-PCS; 2017-06-20)
DX: T81.4XXA Infection following a procedure, initial encounter (principal); A41.1 Sepsis due to other specified staphylococcus; E43 Unspecified severe protein-calorie malnutrition; B96.89 Other specified bacterial agents as the cause of diseases classified elsewhere; D63.8 Anemia in other chronic diseases classified elsewhere; E03.9 Hypothyroidism, unspecified; E87.6 Hypokalemia; F10.10 Alcohol abuse, uncomplicated; F15.10 Other stimulant abuse, uncomplicated; F17.210 Nicotine dependence, cigarettes, uncomplicated; F32.9 Major depressive disorder, single episode, unspecified; G89.29 Other chronic pain; M54.18 Radiculopathy, sacral and sacrococcygeal region; Z79.891 Long term (current) use of opiate analgesic; Z79.899 Other long term (current) drug therapy; Z80.3 Family history of malignant neoplasm of breast; Z68.21 Body mass index [BMI] 21.0-21.9, adult
CPT/HCPCS: 36415; 36569; 72131; 72158; 76937; 77001; 80048; 80053; 80307; 82040; 82550; 83605; 83735; 84100; 84439; 84443; 85025; 85651; 86140; 87040; 87070; 87077; 87186; 87205; 96361; 96365; 96375; 96376; A9585; J0696; J0878; J1650; J2248; J2405; J2543; J3370; C1751; J0360; J7030; J7040

== ENCOUNTER 2017-07-09 16:08 | Inpatient (IN) | payer MEDICARE ==
[~2017-07-09] VITALS: Ht 152.4 cm; Wt 46.8 kg
[~2017-07-09 16:08] MED LIST changes: +CITA20TA9 PO; +DAPT500V6 IV; +ENOX40SY4 SQ; +FENT1PAT76 TD; +GABA300C10 PO; +LEVO25TA2 PO; +METH500T7 PO; +MICAFUNGIN IV; +NICO-487 TD; +ONDA4VIA4 IVPush; +POLY17PO5 PO; +TRAM50TA2 PO
[2017-07-09 17:26] LABS: BASOPHILS # (AUTO) 0.09 x10^3/uL (0-0.1); BASOPHILS % (AUTO) 1 % (0-1); EOSINOPHILS # (AUTO) 0.32 x10^3/uL (0-0.4); EOSINOPHILS % (AUTO) 3 % (1-7); LYMPHOCYTES % (AUTO) 17 % (22-44); MD NO; MEAN CORPUSCULAR HEMOGLOBIN 30.8 pg (27.0-34.8); MEAN CORPUSCULAR HGB CONC 32.9 g/dL (32.4-35.8); MEAN CORPUSCULAR VOLUME 93.6 fL (80-100); MEAN PLATELET VOLUME 6.6 fL (7.4-10.4); MONOCYTES # (AUTO) 1.27 x10^3/uL (0.2-0.8); MONOCYTES % (AUTO) 13 % (2-9); NEUTROPHILS # (AUTO) 6.73 x10^3/uL (1.8-6.8); NEUTROPHILS % (AUTO) 67 % (42-75); PLATELET COUNT 830 x10^3/uL (130-400); RED BLOOD COUNT 3.61 x10^6/uL (3.82-5.3); RED CELL DISTRIBUTION WIDTH 17.4 % (9.6-15.2)
[2017-07-09] MEDS ORDERED: PROMETHAZINE 12.5 MG SUPP PR PRN (17:30)
[2017-07-09] MEDS ORDERED: ACETAMINOPHEN 325 MG TABLET PO PRN (17:30)
[2017-07-09] MEDS ORDERED: ONDANSETRON 2MG/ML, 2ML IVPush PRN (17:30)
[2017-07-09] MEDS ORDERED: PHARMACY INSTRUCTION MC PRN (17:30)
[2017-07-09] MEDS ORDERED: LABETALOL 5MG/ML, 20ML IV PRN (17:30)
[2017-07-09] MEDS ORDERED: hydrALAzine 20 MG/ML, 1ML IV PRN ×2 (17:30→21:00)
[2017-07-09] MEDS ORDERED: PROMETHAZINE 25 MG/ML, 1ML IV PRN (17:30)
[2017-07-09] MEDS ORDERED: PHARMACY MAY ADJ FOR RENAL FX MC PRN (17:30)
[2017-07-09] MEDS ORDERED: MEPERIDINE/PF 25MG/0.5ML IVPush PRN (17:30)
[2017-07-09] MEDS ORDERED: OXYcodone 5 MG/5 ML ORAL.SOL UDC PO PRN (17:30)
[2017-07-09] MEDS ORDERED: morphine SULFATE 10 MG/ML, 1ML IV PRN (17:30)
[2017-07-09 17:35] LABS: INTERNATIONAL NORMALIZED RATIO 0.95 (0.93-1.1); PROTHROMBIN TIME 9.8 Seconds (9.6-11.5)
[2017-07-09 17:38] LABS: ALBUMIN 2.3 g/dL (3.4-5.0); ANION GAP 9 mmol/L (5-15); CHLORIDE 102 mmol/L (98-107); CREATININE 0.56 mg/dL (0.55-1.02)
[2017-07-09] MEDS ORDERED: ROCURONIUM 10 MG/ML,10ML ONE (17:43)
[2017-07-09] MEDS ORDERED: ONDANSETRON 2MG/ML, 2ML ONE (17:43)
[2017-07-09] MEDS ORDERED: DEXAMETHASONE 4 MG/ML, 1ML ONE (17:43)
[2017-07-09] MEDS ORDERED: NEOSTIGMINE 1 MG/ML, 10ML ONE (17:43)
[2017-07-09] MEDS ORDERED: PROPOFOL 10 MG/ML, 20ML ONE (17:43)
[2017-07-09] MEDS ORDERED: GLYCOPYRROLATE 0.2MG/1ML, 5ML ONE (17:43)
[2017-07-09] MEDS ORDERED: CEFAZOLIN 1,000 MG ONE (17:43)
[2017-07-09] MEDS ORDERED: OXYcodone 5 MG/5 ML ORAL.SOL UDC ONE (19:00)
[2017-07-09] MEDS: FENTANYL PF 100 MCG/2ML IV PRN ×4 (19:00→19:39)
[2017-07-09] MEDS ORDERED: ACETAMINOPHEN 650 MG/20.3 ML UDC ONE (19:00)
[2017-07-09] MEDS ORDERED: HYDROmorphone 2 MG/ML, 1ML ONE (19:00)
[2017-07-09] MEDS ORDERED: VANCOMYCIN 1,000 MG ONE (19:00)
[2017-07-09] MEDS ORDERED: FENTANYL PF 100 MCG/2ML ONE (19:00)
[2017-07-09] MEDS ORDERED: THROMBIN 5,000 UNIT VIAL TP ONE (19:00)
[2017-07-09] MEDS: HYDROmorphone 1 MG/ML, 1ML IV PRN ×4 (19:05→19:33)
[2017-07-09 20:15] VITALS: BP 112/78
[2017-07-09] MEDS ORDERED: ONDANSETRON 2MG/ML, 2ML IV PRN (21:00)
[2017-07-09] MEDS ORDERED: DIPHENHYDRAMINE 50 MG/ML, 1ML IV PRN (21:00)
[2017-07-09] MEDS ORDERED: DIPHENHYDRAMINE 25 MG CAPSULE PO PRN (21:00)
[2017-07-09] MEDS ORDERED: HYDROmorphone 1 MG/ML, 1ML IV PRN (21:00)
[2017-07-09] MEDS: SODIUM CHLORIDE FLUSH 10ML SYR IVF SCH (21:00)
[2017-07-09] MEDS: LACTATED RINGERS 1,000 ML IV SCH (21:28)
[2017-07-09] MEDS: METHOCARBAMOL 500 MG TABLET PO PRN (22:40)
[2017-07-10] MEDS: OXYcodone 5 MG/5 ML ORAL.SOL UDC PO PRN ×3 (00:17→11:02)
[2017-07-10] MEDS: PIPERACILLIN/TAZO/PMX 4.5GM 100 ML IV SCH ×2 (00:17→05:48)
[2017-07-10 00:21] VITALS: BP 122/85
[2017-07-10] MEDS: CEFAZOLIN PMX 1GM/50ML 50 ML IVPB SCH ×2 (01:39→11:02)
[2017-07-10 03:44] VITALS: BP 142/85
[2017-07-10 05:30] LABS: CHLORIDE 101 mmol/L (98-107)
[2017-07-10 05:43] LABS: BASOPHILS # (AUTO) 0.02 x10^3/uL (0-0.1); BASOPHILS % (AUTO) 0 % (0-1); EOSINOPHILS % (AUTO) 0 % (1-7); LYMPHOCYTES % (AUTO) 13 % (22-44); MD NO; MEAN CORPUSCULAR HEMOGLOBIN 30.3 pg (27.0-34.8); MEAN CORPUSCULAR HGB CONC 32.7 g/dL (32.4-35.8); MEAN CORPUSCULAR VOLUME 92.5 fL (80-100); MEAN PLATELET VOLUME 6.8 fL (7.4-10.4); MONOCYTES % (AUTO) 4 % (2-9); NEUTROPHILS # (AUTO) 6.33 x10^3/uL (1.8-6.8); NEUTROPHILS % (AUTO) 83 % (42-75); PLATELET COUNT 738 x10^3/uL (130-400); RED BLOOD COUNT 3.48 x10^6/uL (3.82-5.3); RED CELL DISTRIBUTION WIDTH 16.4 % (9.6-15.2)
[2017-07-10 05:44] LABS: ALBUMIN 2.2 g/dL (3.4-5.0); ANION GAP 10 mmol/L (5-15); CALCIUM 9.3 mg/dL (8.5-10.1); CREATININE 0.53 mg/dL (0.55-1.02)
[2017-07-10] MEDS: LACTATED RINGERS 1,000 ML IV SCH ×2 (05:47→10:20)
[2017-07-10] MEDS ORDERED: DAPTOMYCIN 300 MG in SODIUM CHLORIDE 0.9% 100 ML IV SCH (06:00)
[2017-07-10 07:10] VITALS: BP 167/106
[2017-07-10] MEDS: METHOCARBAMOL 500 MG TABLET PO PRN (08:28)
[2017-07-10] MEDS: SODIUM CHLORIDE FLUSH 10ML SYR IVF SCH (09:00)
[2017-07-10] MEDS ORDERED: MICAFUNGIN 100 MG in SODIUM CHLORIDE 0.9% 100 ML IV SCH (09:00)
[2017-07-10] MEDS ORDERED: MICAFUNGIN 100 MG IV SCH (09:00)
[2017-07-10] MEDS ORDERED: PIPE4.5F2 IV (09:18)
[2017-07-10] MEDS ORDERED: DAPT500V6 IV (09:18)
[2017-07-10] MEDS ORDERED: OXYcodone IR 5MG TABLET ONE (10:59)
[2017-07-10 11:32] VITALS: BP 144/87
[2017-07-10] MEDS ORDERED: ENOXAPARIN 40 MG/0.4 ML SQ SCH (19:00)
== END 2017-07-10 11:49 | DRG 901 ==
LOC: ED 17:11 → EDIP 17:12 → ED 17:28 → 4NOR 20:10
PROVIDERS: ADMIT Internal Medicine; ATTEND Internal Medicine
PROC: 0J970ZZ Drainage of Back Subcutaneous Tissue and Fascia, Open Approach (ICD-10-PCS; 2017-07-09)
PROC: 01NB0ZZ Release Lumbar Nerve, Open Approach (ICD-10-PCS; 2017-07-09)
PROC: 0JB70ZZ Excision of Back Subcutaneous Tissue and Fascia, Open Approach (ICD-10-PCS; principal; 2017-07-09 17:30)
DX: T81.31XA Disruption of external operation (surgical) wound, not elsewhere classified, initial encounter (principal); E43 Unspecified severe protein-calorie malnutrition; G06.1 Intraspinal abscess and granuloma; F11.20 Opioid dependence, uncomplicated; T81.4XXA Infection following a procedure, initial encounter; Y83.8 Other surgical procedures as the cause of abnormal reaction of the patient, or of later complication, without mention of misadventure at the time of the procedure; Y92.89 Other specified places as the place of occurrence of the external cause; E03.9 Hypothyroidism, unspecified; T81.30XA Disruption of wound, unspecified, initial encounter; F15.10 Other stimulant abuse, uncomplicated; F32.9 Major depressive disorder, single episode, unspecified; M48.061 Spinal stenosis, lumbar region without neurogenic claudication; Z68.20 Body mass index [BMI] 20.0-20.9, adult
CPT/HCPCS: 36415; 80048; 82040; 85025; 85610; 85730; 87070; 87075; 87077; 87102; 87176; 87186; 87205; 99285; J0690; J0878; J1100; J1170; J2248; J2405; J2543; J2704; J2710; J3010; J3370; J3490; J1200; J7120

== ENCOUNTER → 2018-09-26 | Outpatient (CLI) | payer MEDICARE ==
[~2018-09-26] MED LIST changes: -CLON-364 PO; +CLON0.5T11 PO; +HYDR-3245 PO; -ONDA4VIA4 IVPush; +ONDA4VIA60 IVPush; +PIPE4.5F2 IV
[2018-09-26 16:25] LABS: MICROSCOPIC NOT IND
[2018-09-26 16:28] LABS: CULTURE INDICATED? NO
[2018-09-26 16:35] LABS: BASOPHILS # (AUTO) 0.04 x10^3/uL (0-0.1); BASOPHILS % (AUTO) 0 % (0-1); EOSINOPHILS # (AUTO) 0.05 x10^3/uL (0-0.4); EOSINOPHILS % (AUTO) 0 % (1-7); LYMPHOCYTES # (AUTO) 3.31 x10^3/uL (1-3.4); LYMPHOCYTES % (AUTO) 24 % (22-44); MD NO; MEAN CORPUSCULAR HEMOGLOBIN 32.2 pg (27.0-34.8); MEAN CORPUSCULAR HGB CONC 33.3 g/dL (32.4-35.8); MEAN CORPUSCULAR VOLUME 96.7 fL (80-100); MEAN PLATELET VOLUME 6.7 fL (7.4-10.4); MONOCYTES % (AUTO) 7 % (2-9); NEUTROPHILS # (AUTO) 9.24 x10^3/uL (1.8-6.8); NEUTROPHILS % (AUTO) 68 % (42-75); PLATELET COUNT 297 x10^3/uL (130-400); RED CELL DISTRIBUTION WIDTH 13.4 % (9.6-15.2)
[2018-09-26 16:43] LABS: INTERNATIONAL NORMALIZED RATIO 1.02 (0.93-1.1); PROTHROMBIN TIME 10.7 Seconds (9.6-11.5)
[2018-09-26 16:45] LABS: ALANINE AMINOTRANSFERASE 41 U/L (12-78); ALBUMIN 3.8 g/dL (3.4-5.0); ANION GAP 7 mmol/L (5-15); CALCIUM 8.8 mg/dL (8.5-10.1); CHLORIDE 104 mmol/L (98-107); CREATININE 0.81 mg/dL (0.55-1.02)
[2018-09-26 16:47] LABS: ALKALINE PHOSPHATASE 127 U/L (45-117); BILIRUBIN,TOTAL 0.6 mg/dL (0.2-1.0); TOTAL PROTEIN 7.4 g/dL (6.4-8.2)
== END | disposition home or self-care (01) ==
LOC: STAR 15:07
PROVIDERS: ATTEND Neurological Surgery
DX: Z01.818 Encounter for other preprocedural examination (principal); R79.1 Abnormal coagulation profile; R94.31 Abnormal electrocardiogram [ECG] [EKG]; R82.90 Unspecified abnormal findings in urine; M41.9 Scoliosis, unspecified
CPT/HCPCS: 36415; 71046; 80053; 81003; 85025; 85610; 85730; 93005

== ENCOUNTER → 2018-09-30 | Outpatient (CLI) | payer MEDICARE ==
[2018-09-30 13:50] LABS: BASOPHILS # (AUTO) 0.05 x10^3/uL (0-0.1); BASOPHILS % (AUTO) 1 % (0-1); EOSINOPHILS # (AUTO) 0.12 x10^3/uL (0-0.4); EOSINOPHILS % (AUTO) 1 % (1-7); LYMPHOCYTES # (AUTO) 1.81 x10^3/uL (1-3.4); LYMPHOCYTES % (AUTO) 18 % (22-44); MD NO; MEAN CORPUSCULAR HEMOGLOBIN 32.3 pg (27.0-34.8); MEAN CORPUSCULAR HGB CONC 33.5 g/dL (32.4-35.8); MEAN CORPUSCULAR VOLUME 96.5 fL (80-100); MEAN PLATELET VOLUME 7.2 fL (7.4-10.4); MONOCYTES # (AUTO) 0.78 x10^3/uL (0.2-0.8); MONOCYTES % (AUTO) 8 % (2-9); NEUTROPHILS # (AUTO) 7.34 x10^3/uL (1.8-6.8); NEUTROPHILS % (AUTO) 73 % (42-75); PLATELET COUNT 334 x10^3/uL (130-400); RED BLOOD COUNT 4.56 x10^6/uL (3.82-5.3)
== END | disposition home or self-care (01) ==
LOC: LAB 13:20
PROVIDERS: ATTEND Neurological Surgery
DX: Z01.812 Encounter for preprocedural laboratory examination (principal); M48.061 Spinal stenosis, lumbar region without neurogenic claudication; R79.1 Abnormal coagulation profile; R94.31 Abnormal electrocardiogram [ECG] [EKG]; R82.90 Unspecified abnormal findings in urine
CPT/HCPCS: 85025

== ENCOUNTER 2018-11-09 04:47 | Emergency (ER) | payer MEDICARE ==
[~2018-11-09] VITALS: Ht 152.4 cm; Wt 47.9 kg
[2018-11-09 09:19] VITALS: BP 117/66
== END 2018-11-09 09:47 | disposition home or self-care (01) ==
LOC: ED 06:51
DX: R11.2 Nausea with vomiting, unspecified (principal); R19.7 Diarrhea, unspecified; M54.9 Dorsalgia, unspecified; R93.7 Abnormal findings on diagnostic imaging of other parts of musculoskeletal system
CPT/HCPCS: 36415; 74021; 80053; 81001; 83690; 85025; 87086; 96374; 96375; 96376; 99284; J2270; J2405